=== PATIENT | male | born 2000 | race Caucasian/White ===

== ENCOUNTER 2024-04-06 17:18 | Emergency (ER) | payer BC ==
[~2024-04-06] VITALS: Ht 170.2 cm; Wt 89.1 kg
[2024-04-06 19:20] VITALS: BP 130/73; PULSE 114; RESP 18; TEMP 98.6; O2SAT 100
[2024-04-06] MEDS ORDERED: TETANUS-DIPTH-ACEL PERTUSSIS 0.5ML SYR Tdap IM ONE (19:45)
[2024-04-06] MEDS: LIDOCAINE 1% HCL (LOCAL ANESTH.) INJ 20ML MDV ONE (20:30)
[2024-04-06] MEDS: cefTRIAXone SOD 1,000 MG VL IM ONE (20:46)
[2024-04-06] MEDS ORDERED: IBUP-1455 PO (20:47)
== END 2024-04-06 20:59 | disposition home or self-care (01) ==
LOC: ER 17:18
DX: S62.633A Displaced fracture of distal phalanx of left middle finger, initial encounter for closed fracture (principal); Z88.2 Allergy status to sulfonamides; W22.8XXA Striking against or struck by other objects, initial encounter; Y93.89 Activity, other specified; Y92.89 Other specified places as the place of occurrence of the external cause; Y99.8 Other external cause status
CPT/HCPCS: 12002; 29130; 73140; 96372; 99283; J0696; J2001